=== PATIENT | female | born 1985 | race Two or more races ===

== ENCOUNTER 2021-05-30 07:20 | Emergency (ER) | payer OTHER ==
[~2021-05-30] VITALS: Ht 160 cm; Wt 65.8 kg
[2021-05-30] MEDS ORDERED: MEDROLPACK PO (11:49)
[2021-05-30] MEDS ORDERED: ZYRTEC10 M3 PO (11:49)
[2021-05-30] MEDS ORDERED: BENADRYL25 MG PO (11:49)
== END 2021-05-30 11:57 | disposition home or self-care (01) ==
LOC: ER 07:20
DX: R21 Rash and other nonspecific skin eruption (principal)

== ENCOUNTER → 2022-09-28 | Emergency (ER) | payer OTHER ==
[~2022-09-28] VITALS: Ht 160 cm; Wt 63.5 kg
[~2022-09-28] MED LIST: BENADRYL25 MG PO; MEDROLPACK PO; ZYRTEC10 M3 PO
== END | disposition home or self-care (01) ==
LOC: ER 09:59
DX: K52.9 Noninfective gastroenteritis and colitis, unspecified (principal); R10.9 Unspecified abdominal pain; Z88.6 Allergy status to analgesic agent; Z88.5 Allergy status to narcotic agent; Z88.8 Allergy status to other drugs, medicaments and biological substances